=== PATIENT | male | born 1960 | race Caucasian/White ===

== ENCOUNTER 2023-12-26 06:47 | Emergency (ER) | payer OTHER, SELFPAY ==
[2023-12-26] VITALS (8 sets, daily range): BP systolic 130–152; BP diastolic 76–92; PULSE 68; O2SAT 97
[2023-12-26 08:07] LABS: % Basophils 0.2 % (0-2); % Eosinophils 0.6 % (0-6); % Immature Granulocytes 0.2 % (0-0.5); % Lymphocytes 21.8 % (20.5-51.1); % Monocytes 6.3 % (1.7-9.3); % Neutrophils 70.9 % (42.2-75.2); Absolute Eosinophils 0.1 10^3/uL (0-0.7); Absolute Monocytes 0.6 10^3/uL (0.1-0.6); Absolute Neutrophils 6.5 10^3/uL (1.4-6.5); Hematocrit 43.2 % (39.0-52.0); Hemoglobin 14.6 g/dL (13.0-18.0); Mean Corp Hgb Conc. 33.8 g/dL (33.0-37.0); Mean Corpuscular Hgb 28.9 pg (27.0-31.0); Mean Corpuscular Volume 85.4 fL (80.0-94.0); Mean Platelet Volume 10.5 fL (7.4-10.4); Nucleated Red Blood Cells % 0 % (-); Platelet Count 244 10^3/uL (130-400); Red Blood Cell Count 5.06 10^6/uL (4.70-6.10); Red Cell Dist. Width 14.1 % (11.5-14.5); White Blood Cell Count 9.1 10^3/uL (4.8-10.8)
[2023-12-26 08:13] LABS: ALT (SGPT) 19 U/L (0-50); AST (SGOT) 22 U/L (17-59); Albumin 4.4 g/dl (3.5-5.0); Alkaline Phosphatase 144 U/L (38-126); Blood Urea Nitrogen 20 mg/dl (9-20); Calcium 9.4 mg/dl (8.4-10.2); Carbon Dioxide 22 mmol/L (22-30); Chloride 107 mmol/L (98-107); Glucose 134 mg/dl (70-99); Potassium 4.1 mmol/L (3.5-5.1); Sodium 140 mmol/L (135-145); Total Bilirubin 0.5 mg/dl (0.2-1.3); Total Protein 7.5 g/dl (6.3-8.2); eGFR > 60.00
--- NOTE | 2023-12-26 08:24 | ED.GENMED ---
History of Present Illness
<Jesica Alvarado GROCERY STOCKER - Last Filed: 12/26/23 15:36>
General
Chief Complaint: Dizziness
Source: patient
Exam Limitations: none
Time Seen by Provider: 12/26/23 08:01
Nursing documentation reviewed up to this point in time: agreed with
Travel History
Have you had any contact with someone who has COVID-19?: No
Do you have any symptoms of coronavirus? Fever > 100 degrees, chills, cough, shortness of breath, sore throat, loss of taste or smell, muscle aches, or headache?: No
History of Present Illness
History of Present Illness:
63-year-old male with history of GERD, HLD, hypothyroid presents stating yesterday at 9 AM as he got out of bed the room was spinning and he was dizzy, he laid down and it was going within 1 to 2 minutes. He states it happened for short period
several times during the day yesterday and then again this morning when he woke up. Symptoms are minimal at this time and they do get worse when he changes position turning from [id number].
He denies any recent illness, he did go on a cruise 2 weeks ago to the [facility].
He does have a cracked tooth in the right lower gum and has a dentist appointment in 2 days. He took amoxicillin 500 mg last night from an old prescription. The tooth is not bothering him much at this time. He is wondering if he is getting
infected which is causing the dizziness and he read on [employer] that a broken tooth can cause sepsis and this is his main concern.
He denies fever or chills. He denies vomiting, has felt mildly nauseous at times. He denies headache.
Past History
<Jesica Alvarado, GROCERY STOCKER - Last Filed: 12/26/23 15:36>
Past History
ED Past Medical History: GERD, Hypercholesterolemia and Hypothyroidism
ED Past Surgical History: None
Social History
Tobacco: Non-smoker
Alcohol: Occasional
Personal:
Living: with family
Employment: Employed
Review of Systems
<Jesica Alvarado, GROCERY STOCKER - Last Filed: 12/26/23 15:36>
Review of Systems
Allergies reviewed?: Yes
All Other Systems: ROS reviewed and negative except as documented in HPI and ROS
Constitutional: Denies fever or fatigue
Respiratory: Denies trouble breathing
Cardiac: Denies chest pain
ABD/GI: Denies abdominal pain, nausea or vomiting
: Denies dysuria or difficulty voiding
Musculoskeletal: Reports no symptoms
Skin: Reports no symptoms
Neurological: Reports dizzy; Denies headache, weakness or numbness
Phy Exam
<Jesica Alvarado, GROCERY STOCKER - Last Filed: 12/26/23 15:36>
Physical Exam
Physical Exam:
GENERAL: No acute distress. A&Ox3.
CONSTITUTIONAL: Afebrile.
EYES: PERRL, conjunctivae normal
Neck: Supple
ENMT: moist mucus membranes, Lower right tooth #30 has a chip fracture. Gum is nontender, no swelling or abscess noted. Pharynx nl, TMs normal. Hearing intact equally to finger rub
RESPIRATORY: Regular respirations, nonlabored, lungs clear.
CARDIOVASCULAR: Regular rate and rhythm, no murmurs, no rubs.
GI: Soft, nontender, normal BS
MUSCULOSKELETAL: Moves with ease. Well perfused.
SKIN: Warm, dry, pink
PSYCH: Normal mood and affect. Well kept, interactive and appropriate
NEUROLOGIC: Awake, alert and oriented. Speech clear, No focal neurological deficits, finger to nose intact, heel to browning intact, ambulating well with steady gait.
Course
<Jesica Alvarado, GROCERY STOCKER - Last Filed: 12/26/23 15:36>
Orders/Labs/Results
Orders:
Orders
12/26/23 07:19
Electrocardiogram (*1) Urgent
Reason for Study: Chest Pain
EKG- Treatment ONCE
12/26/23 07:43
CMP [Comprehensive Metabolic Panel] Urgent
Complete Blood Count/With Diff Urgent
12/26/23 08:23
Physical Therapy Consult [Pt Eval And Treat] Urgent
Treatment: Vestibular evaluation
Activity Level: As Tolerated
Abnormal Lab Results
12/26/23
07:43
MPV 10.5 H fL
(7.4-10.4)
Glucose 134 H mg/dl
(70-99)
Alkaline Phosphatase 144 H U/L
(38-126)
12/26/23 07:43
12/26/23 07:43
Vital Signs
Initial and Last Documented VS:
Initial Vital Signs
Temp Pulse Resp BP Pulse Ox
97.6 F 88 18 152/92 98
12/26/23 06:50 12/26/23 06:50 12/26/23 06:50 12/26/23 06:50 12/26/23 06:50
Last Documented Vital Signs
Temp Pulse Resp BP Pulse Ox
97.6 F 62 15 131/83 96
12/26/23 06:50 12/26/23 10:00 12/26/23 10:00 12/26/23 10:00 12/26/23 10:00
Environmental Projects Advisor consulted with Physician
Environmental Projects Advisor consulted with physician?: Yes
Name of Physician Consulted: Go
<Michele Stiles, DO - Last Filed: 12/26/23 10:18>
Orders/Labs/Results
Orders:
Orders
12/26/23 07:19
Electrocardiogram (*1) Urgent
Reason for Study: Chest Pain
EKG- Treatment ONCE
12/26/23 07:43
CMP [Comprehensive Metabolic Panel] Urgent
Complete Blood Count/With Diff Urgent
12/26/23 08:23
Physical Therapy Consult [Pt Eval And Treat] Urgent
Treatment: Vestibular evaluation
Activity Level: As Tolerated
Abnormal Lab Results
12/26/23
07:43
MPV 10.5 H fL
(7.4-10.4)
Glucose 134 H mg/dl
(70-99)
Alkaline Phosphatase 144 H U/L
(38-126)
12/26/23 07:43
12/26/23 07:43
Vital Signs
Initial and Last Documented VS:
Initial Vital Signs
Temp Pulse Resp BP Pulse Ox
97.6 F 88 18 152/92 98
12/26/23 06:50 12/26/23 06:50 12/26/23 06:50 12/26/23 06:50 12/26/23 06:50
Last Documented Vital Signs
Temp Pulse Resp BP Pulse Ox
97.6 F 62 15 131/83 96
12/26/23 06:50 12/26/23 10:00 12/26/23 10:00 12/26/23 10:00 12/26/23 10:00
<Jesica Alvarado, GROCERY STOCKER - Last Filed: 12/26/23 15:36>
MDM/Problems Addressed
Differential Diagnosis Includes:
BPPV, vestibular neuritis, labyrinthitis, cerebellar stroke
MDM/Problems Addressed:
63-year-old male with history of GERD, HLD, hypothyroid presents stating yesterday at 9 AM as he got out of bed the room was spinning and he was dizzy, he laid down and it was going within 1 to 2 minutes. He states it happened for short period
several times during the day yesterday and then again this morning when he woke up. Symptoms are minimal at this time and they do get worse when he changes position turning from [id number].
He denies any recent illness, he did go on a cruise 2 weeks ago to the [facility].
He does have a cracked tooth in the right lower gum and has a dentist appointment in 2 days. He took amoxicillin 500 mg last night from an old prescription. The tooth is not bothering him much at this time. He is wondering if he is getting
infected which is causing the dizziness and he read on [employer] that a broken tooth can cause sepsis and this is his main concern.
He denies fever or chills. He denies vomiting, has felt mildly nauseous at times. He denies headache.
Afebrile, NAD
12/26/2023 0918 AM
CBC with no clinically significant abnormality
CMP with no clinically significant abnormality
EKG NSR
63-year-old male with 2 days of intermittent room spinning dizziness. No neurological deficits, cerebellum intact, do not suspect CVA.
clearly provoked room spinning dizziness with nystagmus consistent with BPPV.
12/26/2023 0957 AM
P/T in: Could not reproduce nystagmus, pt much improved but with very mild vertigo which could indicate labyrinthitis or perhaps with manipulation and his moving around has moved to the inner ear particles and currently symptoms are simply residual.
He is OOB and ambulating well, steadily, still feels 'just a little dizzy.'
Prescription given for patient to follow-up with vestibular therapist, meclizine prescription sent to his pharmacy
Dr. Stiles in to evaluate and agrees with assessment and plan.
<Jesica Alvarado GROCERY STOCKER - Last Filed: 12/26/23 15:36>
*Critical Care Note
Total Time (30-74mins, 75-104mins- exclusive of procedures): Not Applicable
ED Attending Note
<Jesica Alvarado GROCERY STOCKER - Last Filed: 12/26/23 15:36>
-
Portions of this chart may have been created with voice recognition software.� Occasional wrong word or��sound alike� substitutions may have occurred due to the inherent limitations of voice recognition software.
<Michele Stiles DO - Last Filed: 12/26/23 10:18>
ED Attending Note
Patient seen and examined by attending physician: Yes
I performed the substantive portion of visit, reviewed & personally made and approve the management plan that is documented in note by myself or JACINTO.: Yes
ED Attending Note:
I have seen and evaluated the patient with a [id number] encounter. I have spoken to the advance practicer provider and involved in the medical history, the physical exam, medical decision making.
Evaluation and management service: agree unless noted differently below.
Results interpretation: agree unless noted differently below.
Focused HPI: 63-year-old male presenting with vertiginous symptoms. Patient is unsure if this is related to a cracked tooth. Patient states he sees the room spinning with certain head movements
Physical exam: Sitting in bed comfortably. Cracked lower right molar without surrounding infection. TMs clear. Reproducible nystagmus. Normal finger-nose bilaterally
Medical Decision Making: We discussed no likely benign paroxysmal positional vertigo. Will start meclizine. Discussed return precautions. Patient feels comfortable going home
Discharge Plan
Departure
Patient Disposition: Home (Routine Discharge)
Date of Disposition: 12/26/23
Time of Disposition: 10:17
Patient with high blood pressure during this ER visit?: No
Condition: Good
Discharge Problem:
Benign paroxysmal positional vertigo
Instructions: Labyrinthitis, Vertigo (a Type of Dizziness) (DC)
Prescriptions:
New
meclizine 25 mg tablet
25 mg PO TID PRN (Reason: dizziness) Qty: 30 0RF
No Action
levothyroxine 25 mcg Tablet
25 mcg PO DAILY
omeprazole 20 mg Capsule,Delayed Release(Dr/Ec)
20 mg PO DAILY
rosuvastatin 10 mg Tablet
15 mg PO DAILY
escitalopram oxalate [Lexapro] 5 mg Tablet
5 mg PO DAILY
Referrals:
Vestibular, Rehab Clinic [Other] - As needed
Carlota Fonseca CRNP [Family Provider] -
Stand Alone Forms: Return to Work
Activity Restrictions/Additional Instructions:
As we discussed, your symptoms are minimal at this time and may be residual from BPPV OR you may have a viral inner ear infection.
Try the Meclizine (I sent a prescription to your pharmacy)
If you are not much improved with 3 days on the Meclizine, follow up with the Vestibular Clinic.
Do not take any Meclizine before going to the Clinic as it will interfere with any testing.
Return here immediately for worsening dizziness despite the Meclizine, confusion, weakness in arms or legs or feeling worse in any way.
Interventions
Interventions:
*Risk Screen - Suicide Last Done: 12/26/23 06:50
*General Assessment Last Done: 12/26/23 07:50
*Neglect/Abuse Screening Last Done: 12/26/23 06:50
ED- Fall Risk Assessment Last Done: 12/26/23 07:50
*ED COVID-19 Vaccine History Last Done: 12/26/23 07:50
*Nursing Disposition Last Done: 12/26/23 10:30
ED- Neurological Assessment Last Done: 12/26/23 07:50
ED- Cardiac Assessment Last Done: 12/26/23 07:50
Discharge Date and Time
Discharge Date/Time: 12/26/23 10:40
== END 2023-12-26 10:40 | disposition home or self-care (01) ==
LOC: EMR 06:47
PROVIDERS: Emergency Medicine; EMERGENCY PHYSICIAN Student in an Organized Health Care Education/Training Program; FAMILY PHYSICIAN Nurse Practitioner
DX: H81.10 Benign paroxysmal vertigo, unspecified ear (principal); H55.00 Unspecified nystagmus; K03.81 Cracked tooth; E03.9 Hypothyroidism, unspecified; E78.00 Pure hypercholesterolemia, unspecified; K21.9 Gastro-esophageal reflux disease without esophagitis
CPT/HCPCS: 99284; 80053; 85025; 93005